=== PATIENT | female | born 1990 | race American Indian/Alaskan Native ===

== ENCOUNTER 2016-10-19 16:37 | Emergency (ER) | payer OTHER | END 2016-10-19 19:30 | disposition home or self-care (01) | LOC: ER 16:37 | DX: O23.12 Infections of bladder in pregnancy, second trimester (principal); Z3A.16 16 weeks gestation of pregnancy | CPT/HCPCS: 36415; 76815; 80053; 81001; 83690; 84702; 85025; 87088; 87491; 87591; 87800 ==